=== PATIENT | female | born 1945 | race Hispanic/Latino ===

== ENCOUNTER 2016-05-23 12:15 | Emergency (ER) | payer MEDICARE ==
[2016-05-23] MEDS ORDERED: NARCAN 2 MG/2 ML ONE (12:45)
[2016-05-23] MEDS ORDERED: NARCAN 2 MG/2 ML IV ONE (13:00)
[2016-05-23 13:29] LABS: Basophils % (Auto) 0.8 % (0.0-1.8); Eosinophils % (Auto) 3.1 % (0.0-4.3); Hematocrit 28.1 % (30.3-42.9); Hemoglobin 9.5 gm/dl (10.1-14.3); Mean Corpuscular HGB Conc 34 % (30-34); Mean Corpuscular Hemoglobin 30 pg (28-32); Mean Corpuscular Volume 88 fl (79-97); Platelet Count 283 K/mm3 (140-440); Red Cell Distribution Width 14.3 % (13.2-15.2); White Blood Count 6.1 K/mm3 (4.5-11.0)
--- NOTE | 2016-05-23 13:38 | Emergency Department Report ---
HPI - General Chief Complaint: Overdose Time Seen by Provider: 05/23/16 13:13 - HPI HPI: Room 22--->17 The patient is a 70-year-old female presenting with a chief complaint overmedication. The patient was reportedly sent from Dr. Mobley's office. Patient presumably overmedicated with narcotics accidentally. Patient was administered Narcan 2 mg IV in the ED and has awakened. Dr. Mobley states the patient was stumbling and and appeared sleepy while in his office. He suspected the patient may have taken too many benzodiazepines. The patient was sent to the ED for evaluation Location: Mental state Duration: [see above] Quality: Intoxicated Severity: Moderate Modifying factors: [see above] Context: [see above] Mode of transportation: [not driving] ED Past Medical Hx - Past Medical History Previous Medical History?: Yes Hx Hypertension: Yes Hx Psychiatric Treatment: (depression) - Surgical History Past Surgical History?: Yes Additional Surgical History: neck surgery - Family History Family history: no significant - Social History Smoking Status: Never Smoker Substance Use Type: Prescribed - Medications Home Medications: Home Medications Medication Instructions Recorded Confirmed Last Taken Type Unobtainable 05/23/16 05/23/16 Unknown History ED Review of Systems ROS: Stated complaint: LEG WEAKNESS Other details as noted in HPI Comment: All other systems reviewed and negative Constitutional: malaise. denies: chills, fever Eyes: denies: eye pain, eye discharge, vision change ENT: denies: ear pain, throat pain Respiratory: denies: cough, shortness of breath, wheezing Cardiovascular: denies: chest pain, palpitations Endocrine: no symptoms reported Gastrointestinal: denies: abdominal pain, nausea, diarrhea Genitourinary: denies: urgency, dysuria, discharge Musculoskeletal: denies: back pain, joint swelling, arthralgia Skin: denies: rash, lesions Neurological: other (altered mental status) Psychiatric: denies: anxiety, depression Hematological/Lymphatic: denies: easy bleeding, easy bruising Physical Exam - Physical Exam Vital Signs: Vital Signs 05/23/16 05/23/16 05/23/16 12:36 12:50 12:51 Temperature 97.4 F L Pulse Rate 74 Respiratory Rate Blood Pressure 76/50 O2 Sat by Pulse 90 91 90 Oximetry 05/23/16 05/23/16 05/23/16 12:52 12:53 12:55 Temperature Pulse Rate Respiratory Rate Blood Pressure 89/45 89/45 89/45 O2 Sat by Pulse 92 89 93 Oximetry 05/23/16 05/23/16 05/23/16 12:57 12:59 13:01 Temperature Pulse Rate 111 H Respiratory 32 H Rate Blood Pressure 89/45 147/82 147/82 O2 Sat by Pulse 92 100 99 Oximetry 05/23/16 05/23/16 05/23/16 13:03 13:05 13:07 Temperature Pulse Rate 118 H 114 H 112 H Respiratory 25 H 28 H 35 H Rate Blood Pressure 147/82 147/82 147/82 O2 Sat by Pulse 99 98 99 Oximetry 05/23/16 05/23/16 05/23/16 13:09 13:11 13:13 Temperature Pulse Rate 110 H 105 H 105 H Respiratory 26 H 32 H 28 H Rate Blood Pressure 147/82 147/82 147/82 O2 Sat by Pulse 99 98 99 Oximetry 05/23/16 05/23/16 05/23/16 13:15 13:16 13:17 Temperature Pulse Rate 107 H 100 H 100 H Respiratory 24 27 H 21 Rate Blood Pressure 137/90 137/90 137/90 O2 Sat by Pulse 92 94 97 Oximetry 05/23/16 05/23/16 05/23/16 13:19 13:21 13:23 Temperature Pulse Rate 100 H 96 H 109 H Respiratory 16 19 34 H Rate Blood Pressure 137/90 137/90 137/90 O2 Sat by Pulse 99 99 90 Oximetry 05/23/16 13:29 Temperature Pulse Rate Respiratory 34 H Rate Blood Pressure O2 Sat by Pulse 96 Oximetry Physical Exam: GENERAL: The patient is well-developed well-nourished female lying on stretcher not appearing to be in acute distress. [] HEENT: Normocephalic. Atraumatic. Extraocular motions are intact. Patient has moist mucous membranes. NECK: Supple. Trachea midline CHEST/LUNGS: Clear to auscultation. There is no respiratory distress noted. HEART/CARDIOVASCULAR: Regular. There is no tachycardia. There is no gallop rub or murmur. ABDOMEN: Abdomen is soft, nontender. Patient has normal bowel sounds. There is no abdominal distention. SKIN: There is no rash. There is no edema. There is no diaphoresis. NEURO: The patient is awake, alert, and oriented. The patient is cooperative. The patient has no focal neurologic deficits. The patient has normal speech. Cranial nerves II through XII grossly intact, no drift MUSCULOSKELETAL: There is no evidence of acute injury. ED Course Vital Signs 05/23/16 05/23/16 05/23/16 12:36 12:50 12:51 Temperature 97.4 F L Pulse Rate 74 Respiratory Rate Blood Pressure 76/50 O2 Sat by Pulse 90 91 90 Oximetry 05/23/16 05/23/16 05/23/16 12:52 12:53 12:55 Temperature Pulse Rate Respiratory Rate Blood Pressure 89/45 89/45 89/45 O2 Sat by Pulse 92 89 93 Oximetry 05/23/16 05/23/16 05/23/16 12:57 12:59 13:01 Temperature Pulse Rate 111 H Respiratory 32 H Rate Blood Pressure 89/45 147/82 147/82 O2 Sat by Pulse 92 100 99 Oximetry 05/23/16 05/23/16 05/23/16 13:03 13:05 13:07 Temperature Pulse Rate 118 H 114 H 112 H Respiratory 25 H 28 H 35 H Rate Blood Pressure 147/82 147/82 147/82 O2 Sat by Pulse 99 98 99 Oximetry 05/23/16 05/23/16 05/23/16 13:09 13:11 13:13 Temperature Pulse Rate 110 H 105 H 105 H Respiratory 26 H 32 H 28 H Rate Blood Pressure 147/82 147/82 147/82 O2 Sat by Pulse 99 98 99 Oximetry 05/23/16 05/23/16 05/23/16 13:15 13:16 13:17 Temperature Pulse Rate 107 H 100 H 100 H Respiratory 24 27 H 21 Rate Blood Pressure 137/90 137/90 137/90 O2 Sat by Pulse 92 94 97 Oximetry 05/23/16 05/23/16 05/23/16 13:19 13:21 13:23 Temperature Pulse Rate 100 H 96 H 109 H Respiratory 16 19 34 H Rate Blood Pressure 137/90 137/90 137/90 O2 Sat by Pulse 99 99 90 Oximetry 05/23/16 13:29 Temperature Pulse Rate Respiratory 34 H Rate Blood Pressure O2 Sat by Pulse 96 Oximetry - Reevaluation(s) Reevaluation #1: 05/23/16 17:58 Patient is still awake and responds to questions. Patient denies any complaints currently. The blood pressure is currently 102 systolic. Patient discussed with patient's brother who states he lives with the patient and wishes to take her home. The patient does not wish to be admitted to the hospital. Strong warnings given ED Medical Decision Making - Lab Data Result diagrams: 05/23/16 12:55 05/23/16 12:55 Laboratory Tests 05/23/16 05/23/16 05/23/16 12:55 12:55 12:55 WBC 6.1 RBC 3.20 L Hgb 9.5 L Hct 28.1 L MCV 88 MCH 30 MCHC 34 RDW 14.3 Plt Count 283 Lymph % (Auto) 23.2 [place] % (Auto) 8.3 H Eos % (Auto) 3.1 Baso % (Auto) 0.8 Lymph # 1.4 [place] # 0.5 Eos # 0.2 Baso # 0.0 Seg Neutrophils % 64.6 Seg Neutrophils # 3.9 Sodium 126 L Potassium 5.3 H Chloride 91.5 L Carbon Dioxide 23 Anion Gap 17 BUN 24 H Creatinine 1.2 Estimated GFR 44 BUN/Creatinine Ratio 20.00 Glucose 88 Lactic Acid 1.0 Calcium 8.9 Magnesium 1.7 Total Bilirubin 0.3 AST 52 H ALT 42 Alkaline Phosphatase 95 Total Protein 7.5 Albumin 3.6 L Albumin/Globulin Ratio 0.9 TSH Urine Color Urine Turbidity Urine pH Ur Specific [place] Urine Protein Urine Glucose (UA) Urine Ketones Urine Blood Urine Nitrite Urine Bilirubin Urine Urobilinogen Ur Leukocyte Esterase Urine WBC (Auto) Urine RBC (Auto) Salicylates Urine Opiates Screen Urine Methadone Screen Acetaminophen Ur Barbiturates Screen Ur Phencyclidine Scrn Ur Amphetamines Screen U Benzodiazepines Scrn Urine Cocaine Screen U Marijuana (THC) Screen Drugs of Abuse Note Plasma/Serum Alcohol 05/23/16 05/23/16 05/23/16 12:55 12:55 12:55 WBC RBC Hgb Hct MCV MCH MCHC RDW Plt Count Lymph % (Auto) [place] % (Auto) Eos % (Auto) Baso % (Auto) Lymph # [place] # Eos # Baso # Seg Neutrophils % Seg Neutrophils # Sodium Potassium Chloride Carbon Dioxide Anion Gap BUN Creatinine Estimated GFR BUN/Creatinine Ratio Glucose Lactic Acid Calcium Magnesium Total Bilirubin AST ALT Alkaline Phosphatase Total Protein Albumin Albumin/Globulin Ratio TSH 6.830 H Urine Color Urine Turbidity Urine pH Ur Specific [place] Urine Protein Urine Glucose (UA) Urine Ketones Urine Blood Urine Nitrite Urine Bilirubin Urine Urobilinogen Ur Leukocyte Esterase Urine WBC (Auto) Urine RBC (Auto) Salicylates < 0.3 L Urine Opiates Screen Urine Methadone Screen Acetaminophen < 15.0 Ur Barbiturates Screen Ur Phencyclidine Scrn Ur Amphetamines Screen U Benzodiazepines Scrn Urine Cocaine Screen U Marijuana (THC) Screen Drugs of Abuse Note Plasma/Serum Alcohol 05/23/16 05/23/16 05/23/16 12:55 13:27 13:27 WBC RBC Hgb Hct MCV MCH MCHC RDW Plt Count Lymph % (Auto) [place] % (Auto) Eos % (Auto) Baso % (Auto) Lymph # [place] # Eos # Baso # Seg Neutrophils % Seg Neutrophils # Sodium Potassium Chloride Carbon Dioxide Anion Gap BUN Creatinine Estimated GFR BUN/Creatinine Ratio Glucose Lactic Acid Calcium Magnesium Total Bilirubin AST ALT Alkaline Phosphatase Total Protein Albumin Albumin/Globulin Ratio TSH Urine Color Yellow Urine Turbidity Clear Urine pH 6.0 Ur Specific [place] 1.006 Urine Protein <15 mg/dl Urine Glucose (UA) Neg Urine Ketones Neg Urine Blood Neg Urine Nitrite Neg Urine Bilirubin Neg Urine Urobilinogen < 2.0 Ur Leukocyte Esterase Neg Urine WBC (Auto) < 1.0 Urine RBC (Auto) < 1.0 Salicylates Urine Opiates Screen Presumptive positive Urine Methadone Screen Presumptive negative Acetaminophen Ur Barbiturates Screen Presumptive negative Ur Phencyclidine Scrn Presumptive negative Ur Amphetamines Screen Presumptive negative U Benzodiazepines Scrn Presumptive positive Urine Cocaine Screen Presumptive negative U Marijuana (THC) Screen Presumptive negative Drugs of Abuse Note Disclamer Plasma/Serum Alcohol < 0.01 - EKG Data -: EKG Interpreted by Me EKG shows normal: sinus rhythm Rate: normal - EKG Data When compared to previous EKG there are: previous EKG unavailable Interpretation: nonspecific ST-T wave bud (T-wave inversion in lead 1 and aVL) - Radiology Data Radiology results: report reviewed (CT head), image reviewed (CT head) CT head (read by radiologist)-no acute findings - Differential Diagnosis polypharmacy, substance abuse, narcosis Critical care attestation.: If time is entered above; I have spent that time in minutes in the direct care of this critically ill patient, excluding procedure time. ED Disposition Clinical Impression: Narcosis due to narcotic, purposeful, non-suicidal Disposition: DISCHARGED TO HOME OR SELFCARE Is pt being admited?: No Does the pt Need Aspirin: No Condition: Stable Instructions: Narcotic Abuse (ED), Narcotic Pain Management (ED) Additional Instructions: Return to the emergency department immediately should you develop worsening symptoms, fever, inability to tolerate food or liquid or any other concerns. Referrals: PRIMARY CARE, [Primary Care Provider] - 3-5 Days Time of Disposition: 18:00
[2016-05-23 13:40] LABS: Urine Drugs of Abuse Note Disclamer
[2016-05-23 13:41] LABS: Albumin 3.6 g/dL (3.9-5); Albumin/Globulin Ratio 0.9 %; Bilirubin,Total 0.3 mg/dL (0.1-1.2); Calcium 8.9 mg/dL (8.4-10.2); Chloride 91.5 mmol/L (98-107); Magnesium 1.7 mg/dL (1.7-2.3); Potassium 5.3 mmol/L (3.6-5.0); Total Protein 7.5 g/dL (6.3-8.2)
[2016-05-23 13:50] LABS: Bilirubin,Urine NEG (Negative); Blood,Urine NEG (Negative); Ketones,Urine NEG (Negative); Leukocyte Esterase,Urine NEG (Negative); Nitrite,Urine NEG (Negative); Protein,Urine <15 mg/dL mg/dL (Negative); Urobilinogen,Urine < 2.0 mg/dL (<2.0); WBC,Urine < 1.0 /HPF (0.0-6.0)
[2016-05-23 13:55] LABS: RBC,Urine < 1.0 /HPF (0.0-6.0)
--- NOTE | 2016-05-23 14:55 | Cat Scan Report ---
Cranial CT without contrast. History: Altered mental status. Findings: There is no evidence of acute hemorrhage or infarct. Metallic screws are seen at the base of the occipital bone resulting in metallic streak artifact compromising evaluation of the posterior fossa, although no abnormalities are seen in this region. The ventricles are normal in size and contour. Mild atrophic changes are present. There are no masses or extra-axial collections. The calvarium is intact. Impression: No acute findings.
[2016-05-23] MEDS ORDERED: NACL 0.9% 1000 ML 1,000 ML IV ONE (16:05)
[2016-05-23 18:24] VITALS: BP 102/58
== END 2016-05-23 18:22 | disposition home or self-care (01) ==
LOC: ED 12:15
DX: T40.601A Poisoning by unspecified narcotics, accidental (unintentional), initial encounter (principal); I10 Essential (primary) hypertension; F32.9 Major depressive disorder, single episode, unspecified; Y92.89 Other specified places as the place of occurrence of the external cause
CPT/HCPCS: 36415; 70450; 80053; 80307; 81001; 82140; 83735; 84443; 85025; 93005; 93010; 96361; 96374; 99285; G0480; J2310; J7030; 80320; 82962